=== PATIENT | male | born 1945 | race Caucasian/White ===

== ENCOUNTER → 2020-07-23 | Outpatient (CLI) | payer MEDICARE, OTHER ==
--- NOTE | 2020-07-23 16:28 | RADIOLOGY REPORT (SQ) ---
EXAM DESCRIPTION: MRILLJ WO IMAGES COMPLETED DATE/TIME: 07/23/2020 9:28 am REASON FOR STUDY: (M25.552)PAIN IN LEFT HIP COMPARISON: None. TECHNIQUE: Noncontrast multiplanar MR imaging. Sequences include wide field of view pelvis and focu sed hip of interest. Fat sensitive, water sensitive, and cartilage sensitive sequences. Specific hip of interest: Left LIMITATIONS: None. FINDINGS: MARROW SIGNAL: Normal, no evidence of replacement, occult fracture or suspicious bone lesi on in the visualized lumbar spine, pelvis and proximal femurs. SPECIFIC HIP OF INTEREST: Abnormal signal in the posterior aspect of the superior femoral head. Thi s is restricted to subchondral bone and is low T1 signal with minimal adjacent subchondral cysts and edema. There is mild joint space narrowing with subchondral cysts on the acetabular side of the join t as well. No effusion. No significant bursitis or regional muscle tear. No paralabral cysts. OPPOSITE HIP: No effusion or fracture or AVN or muscle tear or regional bursitis. REMAINDER OF THE OSSEOUS PELVIS: SI joints normal. Symphasis pubis intact. No Avulsion injury evide nt. INTRA- AND EXTRAPELVIC SOFT TISSUES: Intrapelvic soft tissues are relatively unremarkable. There is a left scrotal hydrocele. IMPRESSION: 1. Focal signal abnormality in the left femoral head may represent subchondral fracture or AVN. 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 2. Other findings as above. Reading location - IP/workstation name: [email or web address]
== END ==
LOC: RAD 08:33
PROVIDERS: ATTEND Family Medicine
DX: M25.552 Pain in left hip (principal); M85.88 Other specified disorders of bone density and structure, other site